=== PATIENT | male | born 1965 | race Caucasian/White ===

== ENCOUNTER 2016-10-28 06:55 | Emergency (ER) | payer OTHER ==
[~2016-10-28] VITALS: Ht 175.3 cm; Wt 71.5 kg
[2016-10-28 06:58] VITALS: Ht 175.3 cm; Wt 71.5 kg
[2016-10-28] MEDS ORDERED: LIDO5CRE6 TP (07:45)
[2016-10-28] MEDS ORDERED: NITR30OI6 RC (07:45)
[2016-10-28 07:54] VITALS: BP 140/75; PULSE 68; RESP 18; TEMP 98.2
--- NOTE | 2016-10-28 07:55 | ERD ---
ER Documentation Chief Complaint Date/Time DATE: 10/28/16 TIME: 07:49 Chief Complaint sent by pmd for lab work , new onset of daibetes , rectal pain HPI Patient is a 51-year-old male who presents with 1 day of rectal pain associated with small amount of blood in his stool. Patient denies abdominal pain, dark stool, constipation or diarrhea, vomiting, fever, trauma. The patient was able to pass a stool with some pain today. The patient went to his PMD today and was found to have new onset of diabetes mellitus type 2, for which she was prescribed new medication. The patient reports not having a rectal exam performed by his PMD, but was referred to the ER for his rectal pain. Patient reports that he had blood drawn for unknown lab tests. Report from outpatient clinic suggest that the patient should have colonoscopy and PSA testing. ROS All systems reviewed and are negative except as per history of present illness. Medications Home Meds Active Scripts Lidocaine (ANECREAM) 5 Gm Cream..g., 5 GM TP Q4 Y for PAIN for 7 Days Prov:BRUNO BIRCH MD 10/28/16 Nitroglycerin (RECTIV) 30 Gm Oint...g., 30 GM RC BID Y for PAIN for 7 Days Prov:BRUNO BIRCH MD 10/28/16 PMhx/Soc Past medical history: Diabetes mellitus Past surgical history: None Social history: Denies tobacco or alcohol. History of Surgery: No Anesthesia Reaction: No Hx Neurological Disorder: No Hx Respiratory Disorders: No Hx Cardiac Disorders: No Hx Miscellaneous Medical Probl: No Hx Alcohol Use: No Hx Substance Use: No Hx Tobacco Use: No Smoking Status: Never smoker FmHx Family History: No coronary disease, No diabetes Physical Exam Vitals Vital Signs Date Time Temp Pulse Resp B/P Pulse Ox O2 Delivery O2 Flow Rate FiO2 10/28/16 06:58 98.2 87 18 156/87 98 Physical Exam Const: Alert, no acute distress Head: Atraumatic Eyes: Normal Conjunctiva, no pallor, no icterus ENT: Normal External Ears, Nose and Mouth. Mucous membranes moist Neck: Full range of motion..~ No meningismus. Resp: Clear to auscultation bilaterally, no wheezes, no rales Cardio: Regular rate and rhythm, no murmurs Abd: Soft, non tender, non distended. Normal bowel sounds Rectal: No visible external hemorrhoids, no palpable internal hemorrhoids, no palpable internal mass, no gross blood, considerable pain with insertion of finger. Skin: No petechiae or rashes Back: No midline or flank tenderness Ext: No cyanosis, or edema Neur: Awake and alert, cranial nerves II through XII intact bilaterally, strength and sensation intact in 4 extremities Psych: Normal Mood and Affect Procedures/MDM MDM: Patient is a 51-year-old male who presents with rectal pain. He has additional primary care issues including new onset diabetes, need for age- appropriate cancer screening. There is no clear cause of his pain on exam. Differential diagnosis includes inflammatory rectal process, non-palpable mass, rectal fissure. Patient will be given prescriptions for rectal nitroglycerin in case of fissure, and lidocaine for comfort. I advised him to follow-up with his PMD to arrange for outpatient colorectal follow-up if his symptoms do not resolve. Patient reports a small amount of blood in his stool, but not a significant quantity to raise concern for lower gastrointestinal bleed requiring monitoring or further workup at this time. I did advise the patient on return precautions for worsening symptoms. Departure Diagnosis: Primary Impression: Rectal pain Condition: Stable Referrals: DOCTOR,NOT ON STAFF Additional Instructions: Follow-up with your PMD in the next 2 days. Return to the ER for significant bleeding from rectum, or severe pain. BRUNO BIRCH MD Oct 28, 2016 07:55
== END 2016-10-28 07:55 | disposition home or self-care (01) ==
LOC: E/R 06:55
DX: K62.89 Other specified diseases of anus and rectum (principal); E11.9 Type 2 diabetes mellitus without complications
CPT/HCPCS: 99284

== ENCOUNTER 2016-12-24 10:55 | Day surgery (SDC) | payer OTHER ==
[2016-12-24] VITALS (11 sets, daily range): BP systolic 126–148; BP diastolic 72–92; PULSE 61–76; RESP 14–22; Ht 170.2 cm; Wt 68.5 kg
[~2016-12-24] VITALS: Ht 170.2 cm; Wt 68.5 kg
[~2016-12-24 10:55] MED LIST: LIDO5CRE6 TP; NITR30OI6 RC
[2016-12-24] MEDS ORDERED: CEFAZOLIN 2 GM/50 ML (PMX) 50 ML IVPB SCH (12:00)
[2016-12-24] MEDS ORDERED: SOD CHLORIDE 0.9% 1,000 ML IV SCH (12:00)
[2016-12-24] MEDS ORDERED: GLIP-95 PO (12:20)
[2016-12-24 12:47] LABS: INR 0.99; PROTIME 13.1 Sec (12.2-14.2)
[2016-12-24 12:48] LABS: PARTIAL THROMBOPLASTIN TIME 30.2 Sec (25.0-35.0)
[2016-12-24 13:16] LABS: ALBUMIN 4.4 g/dl (3.3-4.9); ALBUMIN/GLOBULIN RATIO 1.57; BILIRUBIN,INDIRECT 0.5 mg/dl (0-1.1); BILIRUBIN,TOTAL 0.5 mg/dl (0.2-1.3); TOTAL PROTEIN 7.2 g/dl (6.1-8.1)
[2016-12-24 13:19] LABS: CALCIUM 8.9 mg/dl (8.4-10.2); CREATININE 0.67 mg/dl (0.61-1.24); POTASSIUM 3.9 mmol/L (3.5-5.1)
--- NOTE | 2016-12-24 13:41 | RADRPT ---
PROCEDURE: XR Chest. CLINICAL INDICATION: Pre-operative evaluation. TECHNIQUE: Single frontal chest x-ray. COMPARISON: None available FINDINGS: The lungs are clear. No focal opacification is seen. No pneumothorax or pleural effusion is seen. The cardiomediastinal silhouette is unremarkable. The osseous structures are grossly unremarkable. IMPRESSION: No evidence of acute cardiopulmonary disease. RPTAT: BB .Zeeshan Sol MD, MD Date Time Electronically viewed and signed by .Zeeshan oSl MD, on 12/24/2016 13:40 .A/
[2016-12-24] MEDS ORDERED: PROPOFOL 20 ML ONE (14:24)
[2016-12-24] MEDS ORDERED: FENTAnyl 50 MCG/ML VIAL ONE (14:24)
[2016-12-24] MEDS ORDERED: MIDAZOLAM 1 MG/ML 2 ML INJ ONE (14:24)
[2016-12-24] MEDS ORDERED: ROPIVACAINE 0.2% 20 ML VIAL ONE (14:34)
[2016-12-24] MEDS ORDERED: CEFAZOLIN 1 GM INJ ONE (14:51)
[2016-12-24] MEDS ORDERED: BUPIVACAINE 0.25% (MPF) 30 ML INJ ONE (15:15)
[2016-12-24] MEDS ORDERED: FAMOTIDINE 20 MG INJ ONE (15:21)
[2016-12-24] MEDS ORDERED: ONDANSETRON 4 MG INJ ONE (15:21)
--- NOTE | 2016-12-24 15:24 | OPR ---
Date/Time of Note Date/Time of Note DATE: 12/24/16 TIME: 15:23 Operative Report Preoperative Diagnosis RIH Postoperative Diagnosis same Operation/Procedure Performed open RIH repair with mesh medium ultrapro hernia system mesh right ilioinguinal nerve block Surgeon: Selene SANDERS G. SEONG Dec 24, 2016 15:23
[2016-12-24] MEDS ORDERED: BUPIVACAINE 0.25% (MPF) 30 ML INJ INJ ONE ×2 (15:30)
[2016-12-24] MEDS ORDERED: HYDROCODONE/APAP (5/325) TAB PO ONE (15:30)
[2016-12-24] MEDS ORDERED: HYDROmorphONE (0.2 MG/ML) 10ML SYG IV PRN ×2 (16:00)
[2016-12-24] MEDS ORDERED: ONDANSETRON 4 MG INJ IV PRN (16:00)
[2016-12-24] MEDS ORDERED: MEPERIDINE 25 MG INJ IV PRN (16:00)
[2016-12-24] MEDS ORDERED: DIPHENHYDRAMINE 50 MG INJ IV PRN (16:00)
--- NOTE | 2016-12-24 20:21 | OPR ---
DATE OF OPERATION: 12/24/2016 INDICATION: This is a 51-year-old male with a right inguinal hernia that is incarcerated. He reque sts surgical excision. Risks, alternatives, benefits, and personnel were discussed with the patient . The patient verbalized his understanding, consents to the operation. PREOPERATIVE DIAGNOSIS: Incarcerated right inguinal hernia. POSTOPERATIVE DIAGNOSIS: Incarcerated right inguinal hernia. OPERATION: 1. Open right incarcerated inguinal hernia repair with medium size UltraPro hernia system mesh. 2. Right ilio[place] [address]. SURGEON: Angelica Kelley MD SPECIMEN: None. COMPLICATIONS: None. ANESTHESIA: General. DESCRIPTION OF PROCEDURE: The patient was taken to the OR and prepped and draped in usual sterile f ashion. Surgical timeout was performed. IV antibiotics were given. Right inguinal oblique incisio n was made with a 10 blade. Dissection cautery was carried down to the external oblique fascia, whi ch was opened with a 15 blade. This incision is extended medial inferiorly and lateral superiorly w ith Metzenbaum scissors. Cord structures were identified and encircled with a Shruti drain. A dir ect hernia was identified and reduced. This was bolstered with the disk portion of the UltraPro her yanna system mesh. The disk was secured in place with a running 0 Prolene from the pubic tubercle jada ng the shelving edge of the inguinal ligament and superiorly to the internal oblique with interrupte d 3-0 Vicryl. Onlay mesh was secured in a similar fashion with a running 0 Prolene from the pubic t ubercle along the shelving edge of the inguinal ligament. Straps were created and reapproximated ar ound the cord structures to recreate the inguinal ring with interrupted 0 Prolene. The onlay mesh w as secured to the internal oblique with interrupted 3-0 Vicryl. External oblique fascia was closed with running 3-0 Vicryl. Gerard's was closed with interrupted 3-0 Vicryl. Skin was closed using sk in [place]. Local anesthesia was injected to the skin. A right ilioinguinal nerve block was then p erformed, identifying a position 2 cm medial and inferior to ASIS. In a fanning motion, the nerve b lock was performed. Dry dressings were applied. Dictated By: ANGELICA KELLEY MD SB/DANIEL Conf#: [id number] DID#: [id number]
--- NOTE | 2016-12-26 10:30 | RADRPT ---
Vent Rate: 61 bpm RR Interval: 0 msec ID Interval: 164 msec QRS Duration: 102 msec QT Interval: 394 msec QTC Interval: 396 msec P-R-T [place]: 65 - 34 - 46 degrees Normal sinus rhythm Normal ECG Electronically Signed By: Brent Shine [id number]
== END 2016-12-24 17:20 | disposition home or self-care (01) ==
LOC: SDS 10:55
PROVIDERS: ATTEND Surgery
DX: K40.30 Unilateral inguinal hernia, with obstruction, without gangrene, not specified as recurrent (principal); J44.9 Chronic obstructive pulmonary disease, unspecified; E11.9 Type 2 diabetes mellitus without complications; F17.200 Nicotine dependence, unspecified, uncomplicated
CPT/HCPCS: 49507; 71010; 80053; 82962; 83036; 85610; 85730; 93005; C1781; J0690; J1170; J2175; J2250; J2405; J2795; J3010; Z7512; Z7610

== ENCOUNTER 2017-09-21 15:58 | Emergency (ER) | END 2017-09-21 17:54 | disposition home or self-care (01) ==

== ENCOUNTER 2018-09-22 11:26 | Inpatient (IN) | payer OTHER ==
[~2018-09-22] VITALS: Ht 172.7 cm; Wt 71.8 kg
[~2018-09-22 11:26] MED LIST changes: +CYCL10TA7 PO; +GLIP10TA14 PO; +IBUP-1542 PO; -LIDO5CRE6 TP; -NITR30OI6 RC; +TRAM50TA2 PO
--- NOTE | 2018-09-22 11:44 | ERD ---
ER Documentation Chief Complaint Chief Complaint chest pain radiating to back since am HPI 53-year-old male with history of diabetes and hypertension presents the ED complaining of acute onset of unprovoked, severe, diffuse, lower, substernal chest pain which radiates to the back with shortness of breath but no nausea, vomiting or diaphoresis this morning. No exacerbating or relieving factors. Denies headache, neck or back pain. No focal weakness or numbness. Denies leg pain or swelling. No cough or hemoptysis. Denies anorexia, weight loss, night sweats, fevers or chills.. ROS All systems reviewed and are negative except as per history of present illness. Medications Home Meds Reported Medications Metformin* (Glucophage*) 500 Mg Tab, 1 TAB ORAL BID 09/22/18 Glipizide* (Glipizide*) 10 Mg Tablet, 10 MG PO DAILY, TAB 12/24/16 Discontinued Scripts Ibuprofen* (Motrin*) 600 Mg Tab, 600 MG PO Q6, #30 TAB Prov:BLACK MOSHER MD 09/21/17 Cyclobenzaprine Hcl* (Cyclobenzaprine Hcl*) 10 Mg Tablet, 10 MG PO TID, #15 TAB Prov:BLACK MOSHER MD 09/21/17 Tramadol HCl (Tramadol HCl) 50 Mg Tablet, 50 MG PO Q4 PRN for PAIN, #20 TAB Prov:BLACK MOSHER MD 09/21/17 Allergies Allergies: Coded Allergies: No Known Allergy (Unverified , 09/21/17) PMhx/Soc History of Surgery: Yes (HERNIA REPAIR 2017) Anesthesia Reaction: No Hx Neurological Disorder: No Hx Respiratory Disorders: No Hx Cardiac Disorders: No Hx Psychiatric Problems: No Hx Miscellaneous Medical Probl: Yes (DM) Hx Alcohol Use: No Hx Substance Use: No Hx Tobacco Use: Yes FmHx No cancer or sudden cardiac . Physical Exam Vitals Vital Signs Date Temp Pulse Resp B/P (MAP) Pulse Ox O2 O2 Flow FiO2 Time Delivery Rate 09/22/18 98.7 74 17 124/69 98 Room Air 14:15 (87) 09/22/18 Nasal 2 12:01 Cannula 09/22/18 98.2 100 22 168/77 98 11:29 (107) Physical Exam Const: Distress Head: Atraumatic Eyes: Normal Conjunctiva ENT: Normal External Ears, Nose and Mouth. Neck: Full range of motion. No JVD. Carotids are 2+ bilateral without bruits. No meningismus. Resp: Breath sounds are equal and clear to auscultation bilaterally Cardio: Regular rate and rhythm, no murmurs Abd: Soft, non tender, non distended. No masses or abnormal pulsations. No rebound or guarding. Normal bowel sounds Skin: No petechiae or rashes Back: No midline or flank tenderness Ext: No cyanosis, or edema. Pulses 4+ in all extremities. Neur: Awake and alert. No focal deficit. Psych: Anxious but not depressed. Result Diagram: 09/22/18 1147 09/22/18 1147 Results 24 hrs Laboratory Tests Test 09/22/18 11:47 09/22/18 15:41 White Blood Count 8.5 10^3/ul Red Blood Count 4.78 10^6/ul Hemoglobin 14.8 g/dl Hematocrit 43.1 % Mean Corpuscular Volume 90.2 fl Mean Corpuscular Hemoglobin 31.0 pg Mean Corpuscular Hemoglobin Concent 34.3 g/dl Red Cell Distribution Width 12.7 % Platelet Count 227 10^3/UL Mean Platelet Volume 10.1 fl Immature Granulocytes % 0.400 % Neutrophils % 72.0 % Lymphocytes % 20.9 % Monocytes % 5.0 % Eosinophils % 0.8 % Basophils % 0.9 % Nucleated Red Blood Cells % 0.0 /100WBC Immature Granulocytes # 0.030 10^3/ul Neutrophils # 6.1 10^3/ul Lymphocytes # 1.8 10^3/ul Monocytes # 0.4 10^3/ul Eosinophils # 0.1 10^3/ul Basophils # 0.1 10^3/ul Nucleated Red Blood Cells # 0.0 10^3/ul Prothrombin Time 12.9 Sec Prothrombin Time Ratio 1.0 INR International Normalized Ratio 0.96 Activated Partial Thromboplast Time 30.2 Sec Sodium Level 141 mmol/L Potassium Level 3.6 mmol/L Chloride Level 108 mmol/L Carbon Dioxide Level 20 mmol/L Anion Gap 13 Blood Urea Nitrogen 10 mg/dl Creatinine 0.65 mg/dl Est Glomerular Filtrat Rate mL/min > 60 mL/min Glucose Level 155 mg/dl Calcium Level 9.3 mg/dl Total Bilirubin 0.2 mg/dl Direct Bilirubin 0.00 mg/dl Indirect Bilirubin 0.2 mg/dl Aspartate Amino Transf (AST/SGOT) 24 IU/L Alanine Aminotransferase (ALT/SGPT) 12 IU/L Alkaline Phosphatase 94 IU/L Troponin I < 0.012 ng/ml < 0.012 ng/ml Total Protein 7.5 g/dl Albumin 4.3 g/dl Globulin 3.20 g/dl Albumin/Globulin Ratio 1.34 Lipase 453 U/L Current Medications Medications Dose Sig/Jeri Start Time Status Last (Trade) Ordered Route PRN Stop Time Admin Dose Reason Admin 1 tab Q5M UP TO 3 09/22/18 Nitroglycerin DOSES PRN 12:00 SL .CHEST (Nitroglyceri PAIN n (Sl Tab) 0.4 Mg) Morphine 4 mg ONCE STAT 09/22/18 DC 09/22/18 Sulfate IV 12:00 12:21 (morphine) 09/22/18 12:01 Ondansetron 4 mg ONCE STAT 09/22/18 DC 09/22/18 HCl (Zofran IV 12:00 12:20 Inj) 09/22/18 12:01 Iohexol 100 ml @ ud STK-MED 09/22/18 DC 09/22/18 ONCE .ROUTE 12:51 13:45 09/22/18 12:52 Iohexol 50 ml STK-MED 09/22/18 DC 09/22/18 (Omnipaque ONCE .ROUTE 12:51 13:45 350mg/ ml) 09/22/18 12:52 Sodium 100 ml @ ud STK-MED 09/22/18 DC 09/22/18 Chloride ONCE .ROUTE 12:52 13:46 09/22/18 12:53 IV Flush 10 ml STK-MED 09/22/18 DC 09/22/18 (NS 10 ml) ONCE .ROUTE 12:52 13:46 09/22/18 12:53 Aspirin 325 mg ONCE ONCE 09/22/18 DC 09/22/18 (Aspirin) PO 15:00 16:34 09/22/18 15:01 1 inch ONCE STAT 09/22/18 DC 09/22/18 Nitroglycerin TD 15:25 16:35 09/22/18 15:26 (Nitroglyceri n 2% Oint) Procedures/MDM DOCUMENTS REVIEWED: ED nurse, prior ED, prior records EKG: Time: 11:29. Sinus rhythm. Ventricular rate 95. NO ECTOY. Normal [place] and QRS. Large T waves across the precordium. No acute ST elevation. My Interpretation Time: 11:29. Sinus rhythm. Ventricular rate 67. Normal [place] QRS. No ectopy. Q waves in lead III but no acute ST segment elevation depression. My i nterpretation. IMAGING: PROCEDURE: XR Chest. CLINICAL INDICATION: Chest Pain. TECHNIQUE: Portable AP view of the chest was obtained. COMPARISON: None. FINDINGS: Mild bibasilar partial atelectasis . No pulmonary consolidation or edema. No effusion or pneumothorax. Cardiac silhouette is normal. No acute osseous abnormality. IMPRESSION: Mild bibasilar partial atelectasis. RPTAT: HRGF Physician Darvin Date Time Electronically viewed and signed by Physician Darvin on 09/22/2018 13:31 RF/ PROCEDURE: CT angiogram of the chest, abdomen and pelvis with contrast CLINICAL INDICATION: Chest and abdominal pain TECHNIQUE: The study was performed utilizing a multidetector CT scanner. Direct spiral 1 mm axial sections were obtained from the thoracic inlet to the pelvis with the use of 120 cc of Omnipaque 350 nonionic intravenous contrast material and reformatted at 3 mm. Sagittal, coronal and 3-D reformations were obtained. The images were reviewed on a PACS workstation. One or more of the following dose reduction techniques were used: Automated exposure control. Adjustment of the mA and/or kV according to patient size. Use of iterative reconstruction technique. DICOM images are available DLP 641.4 mGycm CTDIvol 35.2 and 7.2 mGy COMPARISON: No prior studies are available for comparison. FINDINGS: CTA chest: Aortic atherosclerotic plaque and calcification is visible along with coronary artery calcification partially visualized within the heart. There is no evidence of dissection within the thorax. There is no evidence of hemodynamically significant stenosis or occlusion involving the great vessels of the thorax. No filling defects are seen in the pulmonary arteries to suggest pulmonary embolus. CTA abdomen and pelvis: The abdominal aorta is normal in caliber with no evidence of aneurysm or dissection. Aortic atherosclerotic plaque and calcification is visible along with pelvic arterial atherosclerotic calcifications. There is no hemodynamically significant stenosis or occlusion involving the vessels of the abdomen and pelvis. There are no inflammatory changes to suggest vasculitis. CT chest: Mild bibasilar atelectasis is present. There is trace scattered cystic changes in the lower lungs. There is no lung consolidation or pleural effusion or pneumothorax. There is no suspicious nodule or mass. There are no enlarged axillary or mediastinal lymph nodes. The heart size is normal without evidence for pericardial thickening or effusion. There is a anterior right thyroid lobe nodule measuring 0.7 cm on series 3, image 18. Degenerative changes are seen with no acute osseous abnormality. CT abdomen and pelvis: There is normal density of the liver with no evidence of enhancing lesion. There is no biliary ductal dilatation. The portal vein is intact without thrombus. The gallbladder is unremarkable without inflammation. The spleen is normal in size and homogeneous in density. The pancreas is within normal limits without focal lesion or surrounding inflammation. The adrenal glands are symmetric and normal. The kidneys enhance symmetrically without evidence of focal abnormality, inflammation, or hydronephrosis. No renal calculus or obstructive uropathy or mass lesion is seen. There are no enlarged lymph nodes in the abdomen and pelvis. There is no bowel obstruction or focal bowel wall inflammation. The appendix is unremarkable. Degenerative changes are seen in the lumbar spine with no acute osseous abnormality. The prostate is grossly unremarkable. IMPRESSION: Atherosclerotic disease is present. Otherwise normal appearance of the vascular structures of the chest, abdomen, and pelvis with no evidence of dissection, hemodynamically significant narrowing, occlusion, or visible vasculitis. Mild bibasilar atelectasis is present. Faint cystic changes are seen in the lower lungs and please correlate with smoking history as this could represent sequelae of emphysema. This could also represent cystic changes related to prior inflammation. Entity such as histiocytosis X or lymphangioleiomyomatosis are considered less likely given the scant amount of cystic changes. Right thyroid lobe nodule can be correlated with ultrasound. There is a fecal filled colon. RPTAT: AA .Finn Gray MD, MD Date Time Electronically viewed and signed by .Finn Gray MD, on 09/22/2018 13:26 .J/ MEDICAL DECISION MAKIN-year-old male with history of diabetes and hyperte nsion presents the ED complaining of acute onset of unprovoked, severe, diffuse, lower, substernal chest pain which radiates to the back with shortness of breath but no nausea, vomiting or diaphoresis this morning. CBC is negative for anemia, leukocytosis or thrombocytopenia. Chemistry reveals no evidence of renal insufficiency or electrolyte abnormalities. Troponin is negative. Chest x-ray significant for bibasilar atelectasis but no pneumonia or congestive heart failure. CTA of the chest and abdomen is negative for aortic dissection or pulmonary embolism. Initial EKG reveals nonspecific repolarization abnormality but repeat has normalized. Initial troponin is negative and repeat is pending. HEART score: 4. Patient will require admission to telemetry for further risk stratification. CALLS/CONSULTS: Time: 15:20, [place] CALLS/CONSULTS: Time: 16:38. , Dr. Vick. Case discussed. Feels patient stable for transfer. Will contact human services case manager. Counseled patient regarding diagnosis, diagnostic results and plan for admission. Departure Diagnosis: Primary Impression: Chest pain Chest pain type: unspecified Qualified Codes: R07.9 - Chest pain, unspecified Additional Impressions: Hypertension Hypertension type: essential hypertension Qualified Codes: I10 - Essential (primary) hypertension Diabetes mellitus type 2 in nonobese Condition: Serious SAEED MARTINEZ MD Sep 22, 2018 11:44
[2018-09-22] MEDS ORDERED: morphine 4 MG/ML VIAL IV STA (12:00)
[2018-09-22] MEDS ORDERED: NITROGLYCERIN (SL) 0.4 MG TAB SL PRN (12:00)
[2018-09-22] MEDS ORDERED: ONDANSETRON 4 MG INJ IV STA (12:00)
[2018-09-22] MEDS ORDERED: IOHEXOL 350MG/ML 50 ML BTL ONE (12:51)
[2018-09-22] MEDS ORDERED: IOHEXOL 100 ML ONE (12:51)
[2018-09-22] MEDS ORDERED: SOD CHLORIDE 0.9% 100 ML ONE (12:52)
[2018-09-22] MEDS ORDERED: METF-849 ORAL (13:31)
[2018-09-22] MEDS ORDERED: ASPIRIN 325 MG TAB PO ONE (15:00)
[2018-09-22] MEDS ORDERED: NITROGLYCERIN 2% 1 GM OINT PKT TD STA (15:25)
[2018-09-22] MEDS ORDERED: ACETAMINOPHEN 325 MG TAB PO PRN (17:30)
[2018-09-22] MEDS ORDERED: ONDANSETRON 4 MG INJ IV PRN ×2 (17:30→22:30)
[2018-09-22 21:03] VITALS: PULSE 61
[2018-09-22] MEDS ORDERED: HYDR200T39 PO (21:12)
[2018-09-22 21:27] VITALS: BP 111/59; PULSE 62; RESP 18
[2018-09-22 21:30] VITALS: Ht 172.7 cm; Wt 71.8 kg
[2018-09-22] MEDS ORDERED: morphine 2 MG INJ IV PRN (22:30)
[2018-09-22] MEDS ORDERED: GLUCAGON 1 MG INJ IM PRN (23:00)
[2018-09-22] MEDS ORDERED: DEXTROSE 50% 50 ML SYRINGE IV PRN ×2 (23:00)
[2018-09-22] MEDS ORDERED: GLUCOSE GEL 15 GRAM TUBE BUCCAL PRN (23:00)
[2018-09-22] MEDS ORDERED: GLUCOSE GEL 15 GRAM TUBE PO PRN ×2 (23:00)
[2018-09-23] VITALS (7 sets, daily range): BP systolic 100–122; BP diastolic 60–67; PULSE 61–71; RESP 16–19
--- NOTE | 2018-09-23 01:44 | QN ---
Documentation Comment H&P dict a/p 1. cards: chest pain NATHAN GARCIA MD Sep 23, 2018 01:44
[2018-09-23] MEDS ORDERED: ACCU-CHEK XX SCH (02:00)
--- NOTE | 2018-09-23 02:07 | HP ---
DATE OF ADMISSION: 09/22/2018 CHIEF COMPLAINT: Chest pain. HISTORY OF PRESENTING ILLNESS: Mr. Morris presents to the emergency room at [facility] experiencing an episode of chest pain. This took place in the precordial region, was associated wi th some back pain and describes this as pressure-like with some shortness of breath. PAST MEDICAL HISTORY: Significant for diabetes. MEDICATIONS OUTPATIENT: Include: 1. Metformin. 2. Plaquenil. 3. Glipizide. ALLERGIES: NO KNOWN DRUG ALLERGIES. SOCIAL HISTORY: The patient lives at home in [place] with his . He is independent of activitie s of daily living. Denies tobacco, alcohol or illicit drug use. FAMILY HISTORY: Noncontributory. REVIEW OF SYSTEMS: Five systems reviewed and found not to be revealing. PHYSICAL EXAMINATION: VITAL SIGNS: Blood pressure 106/62, pulse rate 62, respirations 18, temperature is 98.3. GENERAL: This is a pleasant man in no acute distress, alert and oriented x3. HEENT: Normocephalic, atraumatic without evident scleral icterus, perioral cyanosis. Mucous membran es are moist. NECK: Soft, supple without masses. No evidence of jugular venous distention or carotid bruit. CHEST: Clear to auscultation and percussion bilaterally. HEART: Regular rate and rhythm, S1-S2, no added sounds. ABDOMEN: Soft, nontender, nondistended without palpable hepatosplenomegaly. EXTREMITIES: Without clubbing, cyanosis or edema. SKIN: Without rashes. NEUROLOGIC: Grossly intact. LABORATORY STUDIES: Reveal hemoglobin 14.8 g/dL, white count of 8500, platelets of 227,000. Sodium 141, potassium 3.6, chloride 108, bicarbonate 20, BUN 10, creatinine 0.65, glucose 155. Liver functi on tests are entirely within normal limits. Lipase 453. Troponin is negative. DIAGNOSTIC DATA: Chest x-ray shows atelectasis. CT angiogram of the chest reveals no pulmonary embo li or atherosclerotic disease. ASSESSMENT AND PLAN: 1. Cardiac: Rule out acute coronary syndrome. Serial troponins, echocardiogram and stress test. 2. Elevation in lipase. Check for ultrasound and monitor for resolution. 3. Diabetes. Dictated By: NATHAN GARCIA MD RER/NTS Conf#: [id number] [facility]#: [id number] CC: LAUREN DRUMMOND MD; ROBERT PINTO MD;*EndCC*
[2018-09-23] MEDS: INSULIN ASPART [NOVOLOG] 3 ML PEN SC SCH ×2 (07:54→11:50)
[2018-09-23] MEDS ORDERED: HYDROXYCHLOROQUINE 200 MG TAB PO SCH (09:00)
[2018-09-23] MEDS ORDERED: ASPIRIN (EC) 81 MG TAB PO SCH (09:00)
--- NOTE | 2018-09-23 09:59 | PDOCDIS ---
Discharge Instructions CONDITION [id number] Patient Condition: [id number] Good HOME CARE INSTRUCTIONS: [id number] Diet Instructions: [id number] Special Diet: Vnvki9i diabetic ACTIVITY: [id number] Activity Restrictions: [id number] Avoid heavy lifting FOLLOW UP/APPOINTMENTS Follow-up Plan pcp 1 week ROBERT PINTO MD Sep 23, 2018 09:59
[2018-09-23] MEDS ORDERED: REGADENOSON 0.4 MG/5 ML SYG ONE (13:31)
--- NOTE | 2018-09-23 13:48 | DS ---
DATE OF ADMISSION: 09/22/2018 DATE OF DISCHARGE: 09/23/2018 DISCHARGE DIAGNOSES: 1. Musculoskeletal midback pain. 2. Atypical chest pain. 3. Type 2 diabetes mellitus. 4. Elevated lipase with no clinical evidence of pancreatitis. HOSPITAL COURSE: A 53-year-old male with history of type 2 diabetes mellitus, presented to emergency room with complaint of mid and upper back pain as well as sharp chest pains. Initial evaluation was unremarkable. CT pulmonary angiogram did show atherosclerosis; however there was no evidence of aor tic dissection or pulmonary embolus. Lipase was elevated. The patient did not report any abdominal pain. He denies drinking alcohol. At that time of my visit, the patient had resistance to upper brenda k pain. Back exam revealed muscle tenderness. The patient planned to undergo stress test. My asses sment suggests that his back pain is musculoskeletal in nature. He is in a stable condition for disc harge, pending a normal stress test. The patient will follow up with his PCP in 1 week. Dictated By: ROBERT MORA/DANIEL Conf#: [id number] DID#: [id number] CC: LAUREN DRUMMOND MD;*EndCC*
--- NOTE | 2018-09-23 15:33 | RADRPT ---
Echocardiogram Report Patient Name: KELSEA DOWNINGPatient ID: [id number] : 1965 (53y 5m)Study Date: 09/23/2018 8:09:35 AM Gender: MAccession #: [id number] Tech: Eldon Milian [facility] Location: [facility] Ref.Physician: NATHAN GARCIA Height(Cm): BSA: Weight(Kg): Quality: AdequateAccount #: Procedures: Echocardiographic Report: Transthoracic echocardiogram with complete 2D, M-Mode, and doppler examination. Indications: Chest Pain. Measurements: 2D/M Mode Doppler Measurement Value Normal Range Measurement Value Normal Range LVIDd 2D 4.6 [ 4.2 - 5.8 ] cm AV Peak Tristin 1.3 [ 100.0 - 170.0 ] cm/sec LVIDs 2D 2.8 [ 2.5 - 4.0 ] cm AV Peak PG 6.0 [ 2.0 - 9.0 ] mmHg LVPWd 2D 1.0 [ 0.6 - 1.0 ] cm LVOT Peak Tristin 1.0 [ 70.0 - 110.0 ] cm/sec IVSd 2D 1.1 [ 0.6 - 1.0 ] cm LVOT Peak PG 4.0 [ 2.0 - 6.0 ] mmHg AoR Diam 2D 2.9 [ 2.6 - 3.4 ] cm MV E Peak Tristin 0.6 [ 60.0 - 130.0 ] cm/sec EDV 2D 96.3 [ 62.0 - 150.0 ] ml MV A Peak Tristin 0.7 [ 100.0 - 120.0 ] cm/sec ESV 2D 30.3 [ 21.0 - 61.0 ] ml MV E/A 0.8 [ 0.8 - 1.5 ] ratio EF 2D 68.5 [ 52.0 - 72.0 ] percent MV Decel Time 151 [ 104 - 258 ] msec LA Dimen 2D 3.3 [ 3.0 - 4.0 ] cm Lat E` Tristin 0.1 [ 10.0 - 15.0 ] cm/sec Lateral E/E` 5.3 [ 1.0 - 2.0 ] ratio MV E/A 0.8 [ 0.8 - 1.5 ] ratio TR Peak Tristin 2.6 [ 100.0 - 280.0 ] cm/sec TR Peak PG 26.0 mmHg RVSP 29.0 [ 10.0 - 36.0 ] mmHg RA Pressure 3.0 mmHg Findings: Left Ventricle: Normal left ventricular systolic function. Normal left ventricular cavity size. Mild concentric left ventricular hypertrophy. Mild global left ventricular systolic dysfunction. Ejection fraction is visually estimated at 60 %. Tissue Doppler/Mitral Doppler indices are consistent with impaired relaxation (Stage I diastolic dysfunction). Right Ventricle: Normal right ventricular size. Normal right ventricular systolic function. Left Atrium: The left atrium is normal in size. Right Atrium: The right atrium is normal in size. Mitral Valve: Normal appearance and function of the mitral valve with trace physiologic regurgitation. Aortic Valve: Normal appearance of the aortic valve. No significant aortic stenosis or insufficiency. Tricuspid Valve: Normal appearance of the tricuspid valve. Estimated peak PA systolic pressure 29 mmHg. There is trace tricuspid regurgitation. Pulmonic Valve: Normal pulmonic valve appearance. Pericardium: Normal pericardium with no significant pericardial effusion. Aorta: Normal aortic root. IVC: Normal size and normal respiratory collapse consistent with normal right atrial pressure. Conclusions: Normal left ventricular systolic function. Normal left ventricular cavity size. Mild concentric left ventricular hypertrophy. Mild global left ventricular systolic dysfunction. Ejection fraction is visually estimated at 60 %. Tissue Doppler/Mitral Doppler indices are consistent with impaired relaxation (Stage I diastolic dysfunction). Normal right ventricular size. Normal right ventricular systolic function. The left atrium is normal in size. The right atrium is normal in size. No significant valvular stenosis or regurgitation seen. Normal pericardium with no significant pericardial effusion. Electronically Signed By: Tristian Zhao 2018-09-23 15:32:20 PDT
--- NOTE | 2018-09-23 16:15 | CONS ---
Assessment/Plan Assessment/Plan Hospital Course (Demo Recall) Atypical chest pain Normal nuclear cardiac perfusion study 3 Preserved ejection fraction Diabetes Hypertension -Patient with chest and back pain with head movements and left arm movements. Serial cardiac enzymes are negative. ECG with no significant ischemic abnormalities. Given risk factors, patient underwent nuclear cardiac perfusion study with no evidence of ischemia. Echocardiogram with preserved ejection fraction. No further inpatient cardiac workup needed at the current time. Consultation Date/Type/Reason Admit Date/Time Sep 22, 2018 at 17:19 Type of Consult Cardiology Reason for Consultation Chest pain Date/Time of Note DATE: 09/23/18 TIME: 16:13 Hx of Present Illness This is a 53-year-old male who presents with chest pain. Pain is in his neck, shoulder and back. Pain is worse with head movements and left arm movements. Pain is sharp in nature. He denies exertional chest pain or shortness of breath. Denies dizziness or lightheadedness. Symptoms are better today 12 point review of systems was performed with all pertinent positives and negatives mentioned above and all else is negative Past Medical History Medical History: diabetes, hypertension Home Meds Reported Medications Hydroxychloroquine Sulfate* (Hydroxychloroquine Sulfate*) 200 Mg Tablet, 200 MG PO BID, TAB 09/22/18 Metformin* (Glucophage*) 500 Mg Tab, 1 TAB ORAL DAILY 09/22/18 Glipizide* (Glipizide*) 10 Mg Tablet, 10 MG PO DAILY, TAB 12/24/16 Discontinued Scripts Ibuprofen* (Motrin*) 600 Mg Tab, 600 MG PO Q6, #30 TAB Prov:BLACK MOSHER MD 09/21/17 Cyclobenzaprine Hcl* (Cyclobenzaprine Hcl*) 10 Mg Tablet, 10 MG PO TID, #15 TAB Prov:BLACK MOSHER MD 09/21/17 Tramadol HCl (Tramadol HCl) 50 Mg Tablet, 50 MG PO Q4 PRN for PAIN, #20 TAB Prov:BLACK MOSHER MD 09/21/17 Allergies: Coded Allergies: No Known Allergy (Unverified , 09/21/17) Family History Significant Family History: no pertinent family hx Social History Smoking Status: Current every day smoker Exam/Review of Systems Vital Signs Vitals Vital Signs Date Temp Pulse Resp B/P (MAP) Pulse Ox O2 O2 Flow FiO2 Time Delivery Rate 3/26/19 98.6 67 16 122/67 97 15:26 (85) 09/22/18 Room Air 21:27 09/22/18 2 12:01 Intake and Output 09/22/18 09/22/18 09/23/18 1414:59 22:59 06:59 IntakeIntake Total 360 ml BalanceBalance 360 ml Exam Constitutional: alert, oriented (No apparent distress) Head: normocephalic Respiratory: clear to auscultation, normal air movement, other Cardiovascular: regular rate and rhythm (S1-S2 heard) Gastrointestinal: soft, non-tender, bowel sounds Extremities: other (No significant edema) Labs Result Diagram: 09/22/18 1147 09/22/18 1147 Results 24hrs Laboratory Tests Test 09/22/18 21:18 09/23/18 05:44 09/23/18 05:47 09/23/18 07:54 Creatine Kinase 110 97 Creatine Kinase 0.7 0.7 Index Creatinine Kinase MB 0.74 0.69 (Mass) Troponin I < 0.012 < 0.012 Triglycerides Level 228 H Lipase 588 H Bedside Glucose 127 Test 09/23/18 12:16 Bedside Glucose 98 Tristian Zaho DO Sep 23, 2018 16:15
[2018-09-23] MEDS ORDERED: ATORVASTATIN 20 MG TAB PO SCH (21:00)
== END 2018-09-23 15:40 | disposition home or self-care (01) | DRG 313 ==
LOC: E/R 11:26 → TEL 17:19 → EDBEDREQ 20:09
PROVIDERS: ADMIT Internal Medicine; ATTEND Internal Medicine
PROC: C22G1ZZ Tomographic (Tomo) Nuclear Medicine Imaging of Myocardium using Technetium 99m (Tc-99m) (ICD-10-PCS; principal; 2018-09-23)
DX: R07.89 Other chest pain (principal); I10 Essential (primary) hypertension; E11.9 Type 2 diabetes mellitus without complications; M54.89 Other dorsalgia; R74.8 Abnormal levels of other serum enzymes
CPT/HCPCS: 36415; 71045; 71275; 75635; 76700; 78452; 80053; 82550; 82553; 82962; 83690; 84478; 84484; 85025; 85610; 85730; 93005; 93017; 93306; 96374; 96375; A9500; A9505; J1815; J2270; J2405; J2785; Q9967

== ENCOUNTER 2019-03-01 04:40 | Emergency (ER) | payer OTHER ==
[~2019-03-01] VITALS: Ht 172.7 cm; Wt 71.6 kg
[~2019-03-01 04:40] MED LIST changes: +HYDR200T39 PO; +METF-849 ORAL; -TRAM50TA2 PO
[2019-03-01 04:45] VITALS: BP 131/75; PULSE 73; RESP 16; Ht 172.7 cm; Wt 71.6 kg
[2019-03-01] MEDS ORDERED: KETOROLAC 30 MG INJ IM STA (06:16)
== END 2019-03-01 06:47 | disposition home or self-care (01) ==
LOC: FTE 04:40
DX: M54.42 Lumbago with sciatica, left side (principal); F17.210 Nicotine dependence, cigarettes, uncomplicated; E11.9 Type 2 diabetes mellitus without complications; Z79.84 Long term (current) use of oral hypoglycemic drugs
CPT/HCPCS: 96372; J1885; Z7502